=== PATIENT | female | born 1965 | race Caucasian/White ===

== ENCOUNTER → 2016-06-04 | Outpatient (CLI) | payer OTHER ==
[~2016-06-04] MED LIST: AMLO10TA2 PO; CITA10TA7 PO; LISI40TA4 PO; NAPR220T61 PO; SIMV20TA6 PO; TRAM50TA4 PO
== END ==
LOC: WC.BC 15:44
DX: Z12.31 Encounter for screening mammogram for malignant neoplasm of breast (principal)
CPT/HCPCS: 77063; G0202